=== PATIENT | male | born 1980 | race Caucasian/White ===

== ENCOUNTER 2017-09-13 06:15 | Outpatient (CLI) | payer OTHER | END 2017-09-13 06:16 | disposition EMS.NT | LOC: EMS 06:15 | PROVIDERS: ATTEND Surgery | DX: S01.01XA Laceration without foreign body of scalp, initial encounter (principal); V48.5XXA Car driver injured in noncollision transport accident in traffic accident, initial encounter; Y92.410 Unspecified street and highway as the place of occurrence of the external cause ==

== ENCOUNTER 2017-09-13 07:28 | Emergency (ER) | payer OTHER ==
[2017-09-13] MEDS ORDERED: LIDOCAINE MPF 1%-EPI 1:200000 30 ML VIAL ONE (08:06)
[2017-09-13] MEDS ORDERED: IBUPROFEN 800 MG TABLET PO STA (08:10)
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
[2017-09-13] MEDS ORDERED: IBUPROFEN 800 MG TABLET PO ONE (08:20)
[2017-09-13 08:33] VITALS: BP 142/87
[2017-09-13] MEDS ORDERED: BACITRACIN OINT TOP ONE (08:48)
--- NOTE | 2017-09-13 08:49 | XRAY Preliminary Report ---
Exam: XR HAND 3 VIEW RT IMPRESSION: 1. No acute osseous abnormalities. [facility] SITE ID: [id number]
--- NOTE | 2017-09-13 08:50 | XRAY Preliminary Report ---
Exam: XR KNEE 3 VIEW LT IMPRESSION: 1. No acute osseous abnormalities. 2. Mild degenerative changes of the left knee. [facility] SITE ID: [id number]
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
== END 2017-09-13 09:19 | disposition home or self-care (01) ==
LOC: ED 07:28
DX: S01.01XA Laceration without foreign body of scalp, initial encounter (principal); S60.221A Contusion of right hand, initial encounter; S80.02XA Contusion of left knee, initial encounter; V48.5XXA Car driver injured in noncollision transport accident in traffic accident, initial encounter; Y92.411 Interstate highway as the place of occurrence of the external cause; I10 Essential (primary) hypertension; F17.200 Nicotine dependence, unspecified, uncomplicated
CPT/HCPCS: 12001; 73130; 73562; 99283; A9270